=== PATIENT | female | born 1965 | race Caucasian/White ===

== ENCOUNTER → 2016-11-04 | Outpatient (CLI) | payer BC ==
[~2016-11-04] MED LIST: EFFEXOR37.5 MG PO; FIORICET W/CODE1 CAP PO; HYDROCHLOROTH12.5 M1 PO; PHENERGAN25 MG PO; VICODIN PO; ZOFRAN PO
--- NOTE | ~2016-11-04 | CT113 ---
[facility] A Service [facility] RADIOLOGY TEXT RESULTS PATIENT: WENDY HAAS LOCATION: [facility] : 63 UNIT #: [id number] AGE: [address]: Aldo Baxter MD SEX: F ORDER DR: [id number] [address] [place], [place] [address] [id number] O MR#: [id number] #: [id number] NAME: WENDY HAAS : 1965 SEX: F STUDY DATE/TIME: 11/04/2016 16:53 UNIT: [facility] ROOM: STUDY DESCRIPTION: CT Sinuses Wo Contrast Attending Physician: Aldo Baxter M.D. Referring Physician: Aldo Baxter M.D. Ordering Physician: Aldo Baxter M.D. MEDICAL IMAGING REPORT This report is preliminary unless electronic signature is present EXAM CT sinus without contrast HISTORY Chronic sinusitis. Cough. Sinus drainage. Getting worse over the last month. TECHNIQUE Axial 2 mm images were obtained through the sinuses and coronal and sagittal reconstructions were generated. This CT exam was performed with one or more of the following radiation dose reduction techniques: automatic exposure control, adjustment of mA and/or kV according to patient size, and iterative reconstruction. FINDINGS The frontal, ethmoid, sphenoid and maxillary sinuses are clear. The ostiomeatal complexes are patent. The nasal septum is midline. Soft tissues are normal. IMPRESSION Normal CT scan of the sinuses without contrast. Dictated by... Chad Rouse M.D. THIS IS AN ELECTRONICALLY VERIFIED REPORT Chad Rouse M.D. at 11/08/2016 6:07 AM FEL/pcl [facility] A [facility] RADIOLOGY TEXT RESULTS PATIENT: WENDY HAAS LOCATION: [facility] : 63 UNIT #: [id number] AGE: [address]: Aldo Baxter MD SEX: F ORDER DR: TD: 11/07/2016 21:20 JOB #: [id number] MEDICAL IMAGING REPORT Page 1 of 1 COPY
== END | disposition home or self-care (01) ==
LOC: CCAT 16:29
DX: J32.9 Chronic sinusitis, unspecified (principal); R05 Cough
CPT/HCPCS: 70486